=== PATIENT | male | born 1955 | race Caucasian/White ===

== ENCOUNTER → 2017-01-08 | Outpatient (CLI) | payer OTHER ==
[2017-01-09 12:13] LABS: Honeybee Venom IgE Class CLASS 0; Paper Wasp IgE <0.35 kU/L (<0.35); Paper Wasp IgE Class CLASS 0; White-Faced Hornet IgE <0.35 kU/L (<0.35); White-Faced Hornet IgE Class CLASS 0; Yellow Hornet IgE <0.35 kU/L (<0.35); Yellow Hornet IgE Class CLASS 0; Yellow Jacket IgE Class CLASS I
== END | disposition home or self-care (01) ==
LOC: LABWHC1 13:59
PROVIDERS: ATTEND Allergy & Immunology
DX: Z91.038 Other insect allergy status (principal)
CPT/HCPCS: 36415; 86003

== ENCOUNTER → 2018-09-27 | Outpatient (CLI) | payer OTHER ==
--- NOTE | 2018-09-28 08:41 | NM ---
Nuclear medicine hepatobiliary scan. HISTORY: Pain. DOSAGE: The patient received 2.1 micrograms of CCK and 4.7 mCi of Technetium 99m Choletec. FINDINGS: There is normal hepatic extraction. The gallbladder is seen by 30 minutes. There is bilia ry to bowel clearance by 10 minutes. Ejection fraction is 88%. IMPRESSION: 1. Normal filling of radiotracer within the gallbladder. 2. Ejection fraction of 88%. Correlate for hyperdynamic gallbladder.
== END | disposition home or self-care (01) ==
LOC: RADNMMAIN 14:43
PROVIDERS: ATTEND Physician Assistant Medical
DX: K82.9 Disease of gallbladder, unspecified (principal); R19.7 Diarrhea, unspecified; R11.2 Nausea with vomiting, unspecified
CPT/HCPCS: 78227; A9537; J2805

== ENCOUNTER → 2018-12-24 | Outpatient (CLI) | payer OTHER ==
--- NOTE | 2018-12-24 13:29 | CTL ---
EXAMINATION TYPE: CT Low Dose Lung DATE OF EXAM ORDERED: 12/24/2018 HISTORY: . Lung cancer screening CT DLP: 145.[address] CTDI: 3.8 mGy Automated exposure control for dose reduction was used. SCREENING VISIT: Initial COMPARISON: None TECHNIQUE: Low dose computed tomography scan was performed through the chest at 1 mm thick sections a nd reconstructed images in the coronal plane at [address] DIAGNOSTIC QUALITY: Satisfactory FINDINGS: LUNG NODULES: None. LUNGS: COPD: Severity: None Fibrosis: Severity: None Lymph nodes: None Other findings: None RIGHT PLEURAL SPACE: Effusion: None Calcification: None Thickening: None Pneumothorax: None LEFT PLEURAL SPACE: Effusion: None Calcification: None Thickening: None Pneumothorax: None HEART: Heart Size: Normal Coronary calcification: Mild Pericardial effusion: None OTHER FINDINGS: Upper abdomen: Some mild fatty infiltration of the liver is present. Bony thorax: Normal Supraclavicular region: Normal Other: Ascending thoracic aorta at the level the main pulmonary artery measures 3.8 cm. The main pul monary artery at the bifurcation measures 2.6 cm. IMPRESSION: 1. No suspicious lung changes. 2. Mild fatty infiltration of the liver FOLLOW UP CT CHEST RECOMMENDATION: Follow-up low dose CT chest per protocol CT LUNG RAD: 1
== END | disposition home or self-care (01) ==
LOC: RADCTMAIN 08:09
PROVIDERS: ATTEND Family Medicine
DX: Z13.83 Encounter for screening for respiratory disorder NEC (principal); Z87.891 Personal history of nicotine dependence

== ENCOUNTER → 2019-12-29 | Outpatient (CLI) | payer OTHER ==
--- NOTE | 2019-12-29 09:50 | CTL ---
EXAMINATION TYPE: CT Low Dose Lung DATE OF EXAM ORDERED: 12/29/2019 COMPARISON: 12/24/2018 HISTORY: . Low Dose CT Lung Screening CT DLP: 95.[address] CTDI: 2.3 mGy IV CONTRAST USED: None. SCREENING VISIT: First visit COMPARISON: None. TECHNIQUE: Low dose computed tomography scan was performed through the chest at 1 millimeter thick se ctions and reconstructed images in the coronal plane at [address] DIAGNOSTIC QUALITY: Satisfactory FINDINGS: LUNG NODULES: Not presentLeft lung: no nodules identified.Right lung: no nodules identified. LUNGS: COPD: Severity: None Fibrosis: Severity:None Lymph nodes: None Other findings: None RIGHT PLEURAL SPACE: Effusion: None Calcification: None Thickening: None Pneumothorax: None LEFT PLEURAL SPACE: Effusion: None Calcification: None Thickening: None Pneumothorax: None HEART: Heart Size: Mildly enlarged Coronary calcification: Mild Pericardial effusion: None OTHER FINDINGS: Upper abdomen: Mild hepatic steatosis suggested. Bony thorax: Degenerative changes Supraclavicular region: No significant abnormalityOther: No significant abnormalityI IMPRESSION: Benign FOLLOW UP CT CHEST RECOMMENDATION: Follow-up screening in one year CT LUNG RAD: LUNG RAD CATEGORY 1 negative
== END | disposition home or self-care (01) ==
LOC: RADCTMAIN 09:14
PROVIDERS: ATTEND Family Medicine
DX: Z12.2 Encounter for screening for malignant neoplasm of respiratory organs (principal); Z87.891 Personal history of nicotine dependence

== ENCOUNTER 2020-11-11 15:16 | Emergency (ER) | payer MEDICARE, OTHER ==
[2020-11-11 15:25] VITALS: BP 145/79; PULSE 94; RESP 20; TEMP 99.3
[2020-11-11] MEDS ORDERED: DIPH,PERTUS(ACELL)TETVAC-LF 0.5 ML VIAL IM ONE (15:50)
--- NOTE | 2020-11-11 15:50 | ED ---
General Adult HPI - General Chief complaint: Extremity Injury, Lower Stated complaint: L knee injury Time Seen by Provider: 11/11/20 15:35 Source: patient, RN notes reviewed, old records reviewed Mode of arrival: wheelchair Limitations: physical limitation - History of Present Illness Initial comments: 65-year-old male presents status post fall which occurred yesterday. Patient walking in water, fell into his whole striking his left knee. He had an abrasion or small puncture wound on the anterior knee. He states that he previously had a cyst or hard mass on the anterior knee that he believes drained. He does have pain with weightbearing or moving. - Related Data Previous Rx's Medication Instructions Recorded Clindamycin [Cleocin] 300 mg PO TID 7 Days cap 11/11/20 HYDROcodone/APAP 5-325MG [[place] 1 tab PO Q6HR PRN #12 tab 11/11/20 5-325] Ibuprofen [Motrin] 600 mg PO Q8HR PRN #24 tab 11/11/20 Allergies Allergy/AdvReac Type Severity Reaction Status Date / Time bee venom protein (honey bee) Allergy Anaphylaxis Verified 11/11/20 15:25 Review of Systems ROS Statement: Those systems with pertinent positive or pertinent negative responses have been documented in the HPI. ROS Other: All systems not noted in ROS Statement are negative. Past Medical History Past Medical History: Asthma, Diabetes Mellitus, Hypertension Additional Past Medical History / Comment(s): gout History of Any Multi-Drug Resistant Organisms: None Reported Past Surgical History: Ear Surgery Past Psychological History: No Psychological Hx Reported Smoking Status: Never smoker Past Alcohol Use History: Occasional Past Drug Use History: None Reported General Exam Limitations: physical limitation General appearance: alert, in no apparent distress Head exam: Present: atraumatic, normocephalic Eye exam: Present: normal appearance, PERRL ENT exam: Present: normal exam Neck exam: Present: normal inspection. Absent: tenderness, meningismus Respiratory exam: Present: normal lung sounds bilaterally. Absent: respiratory distress, wheezes Cardiovascular Exam: Present: regular rate, normal rhythm GI/Abdominal exam: Present: soft. Absent: distended, tenderness, guarding Extremities exam: Present: other (Left Knee: There is anterior abrasion just over the prepatellar bursa, the patella is nontender and nonerythematous. Ov erall anatomy of the knee is maintained. Distal pulses are intact.). Absent: joint swelling Course Vital Signs 11/11/20 15:22 Temperature 99.3 F Pulse Rate 94 Respiratory 20 Rate Blood Pressure 145/79 O2 Sat by Pulse 96 Oximetry Medical Decision Making - Medical Decision Making 65-year-old male with left knee pain, fall, abrasion. X-ray negative for fracture. Patient is placed in knee immobilizer, he has a walker which she is using. He is given close follow-up with orthopedics. Additionally he'll be given prophylactic antibiotics for skin coverage possible bursitis. Disposition Clinical Impression: Knee sprain, Prepatellar bursitis Disposition: HOME SELF-CARE Condition: Good Instructions (If sedation given, give patient instructions): Knee Sprain (ED), Knee Bursitis (ED) Prescriptions: Clindamycin [Cleocin] 300 mg PO TID 7 Days cap Ibuprofen [Motrin] 600 mg PO Q8HR PRN #24 tab PRN Reason: Pain HYDROcodone/APAP 5-325MG [[place] 5-325] 1 tab PO Q6HR PRN #12 tab PRN Reason: Pain Is patient prescribed a controlled substance at d/c from ED?: No Referrals: Evans Jiang III, MD [Primary Care Provider] - 1-2 days Lonnie Man DO [Doctor of Osteopathic Medicine] - 1-2 days Time of Disposition: 16:30
--- NOTE | 2020-11-11 16:14 | XR ---
EXAMINATION TYPE: XR knee complete LT DATE OF EXAM: 11/11/2020 COMPARISON: NONE HISTORY: Pain TECHNIQUE: 3 views FINDINGS: There is some spurring on the tibial tubercle. I see no fracture nor dislocation. Joint spa gregory are fairly normal. There is probably a very small knee joint effusion. IMPRESSION: Small knee joint effusion. No fracture. Normal joint spaces.
== END 2020-11-11 16:45 | disposition home or self-care (01) ==
LOC: EC 15:16
DX: S83.92XA Sprain of unspecified site of left knee, initial encounter (principal); M70.42 Prepatellar bursitis, left knee; E11.9 Type 2 diabetes mellitus without complications; I10 Essential (primary) hypertension; J45.909 Unspecified asthma, uncomplicated; Z23 Encounter for immunization; W18.30XA Fall on same level, unspecified, initial encounter; Y93.01 Activity, walking, marching and hiking
CPT/HCPCS: 73562; 90715; 90471; 99284; L1830 ×2

== ENCOUNTER → 2021-01-03 | Outpatient (CLI) | payer MEDICARE, OTHER ==
--- NOTE | 2021-01-03 08:04 | CTL ---
EXAMINATION TYPE: CT Low Dose Lung DATE OF EXAM ORDERED: 01/03/2021 HISTORY: Long-term tobacco use. Lung cancer screening CT DLP: 90.[address] CTDI: 2.3 mGy Automated exposure control for dose reduction was used. SCREENING VISIT: Second after baseline COMPARISON: Prior studies 2019 and 2018 TECHNIQUE: Low dose computed tomography scan was performed through the chest at 1 mm thick sections a nd reconstructed images in the coronal plane at [address] DIAGNOSTIC QUALITY: Satisfactory FINDINGS: LUNG NODULES: None. LUNGS: COPD: Severity: Mild Fibrosis: Severity: Minimal medial left basilar Lymph nodes: None Other findings: None RIGHT PLEURAL SPACE: Effusion: None Calcification: None Thickening: None Pneumothorax: None LEFT PLEURAL SPACE: Effusion: None Calcification: None Thickening: None Pneumothorax: None HEART: Heart Size: Normal Coronary calcification: Mild to moderate Pericardial effusion: Non- OTHER FINDINGS: Upper abdomen: None Bony thorax: [id number] multilevel spurring Supraclavicular region: None Other: Stable ascending aortic ectasia or aneurysm up to 3.9 cm. IMPRESSION: No new suspicious greater than [address] LUNG RAD AND CT CHEST RECOMMENDATION: Lung-Rad 1 Negative: Continue annual screening with LDCT in 12 months. S Modifier (other clinically significant findings): None
== END | disposition home or self-care (01) ==
LOC: RADCTMAIN 06:54
PROVIDERS: ATTEND Family Medicine
DX: Z12.2 Encounter for screening for malignant neoplasm of respiratory organs (principal); Z87.891 Personal history of nicotine dependence
CPT/HCPCS: 71271

== ENCOUNTER → 2021-09-11 | Outpatient (CLI) | payer MEDICARE ==
--- NOTE | 2021-09-11 17:14 | US ---
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 Diarrhea EXAM MEASUREMENTS: Liver Length: 17.4 cm Gallbladder Wall: 0.26 cm CBD: 0.3 cm Spleen: 10.0 cm Right Kidney: 11.2 x 6.2 x 5.1 cm Left Kidney: 12.9 x 6.2 x 4.6 cm Pancreas: Slightly limited due to gas Liver: Enlarged. Increased echogenicity, heterogeneous. Indistinct, hypoechoic area seen adjacent to GB measuring 3.0 x 1.4 x 1.0 cm suggestive of focal fatty sparing. Gallbladder: Minimal echoes within vs artifact Evidence for sonographic Mendoza's sign: No CBD: wnl Spleen: wnl Right Kidney: No hydronephrosis or masses seen Left Kidney: No hydronephrosis or masses seen Upper IVC: wnl Abd Aorta: Prox appears ectatic measuring 2.57 cm. IMPRESSION: 1. Hepatomegaly with fatty infiltration. 2. There may be some ectasia of the abdominal aorta. Aneurysmal dilatation is not identified..
== END | disposition home or self-care (01) ==
LOC: RADUSWWP 08:46
PROVIDERS: ATTEND Family Medicine
DX: K76.0 Fatty (change of) liver, not elsewhere classified (principal); R16.0 Hepatomegaly, not elsewhere classified; E80.7 Disorder of bilirubin metabolism, unspecified
CPT/HCPCS: 76700

== ENCOUNTER → 2022-01-07 | Outpatient (CLI) | payer MEDICARE ==
--- NOTE | 2022-01-08 09:47 | CTL ---
EXAMINATION TYPE: CT Low Dose Lung DATE OF EXAM ORDERED: 01/07/2022 HISTORY: Long-term tobacco use. Lung cancer screening CT DLP: 128.[address] CTDI: 3.30 mGy Automated exposure control for dose reduction was used. SCREENING VISIT: Third exam after baseline COMPARISON: Prior study January 03, 2021 and older reports. PACS downtime. TECHNIQUE: Low dose computed tomography scan was performed through the chest at 1 mm thick sections a nd reconstructed images in multiple planes at 1 mm and [address] DIAGNOSTIC QUALITY: Satisfactory FINDINGS: LUNG NODULES: None. LUNGS: COPD: Severity: Mild Fibrosis: Severity: Minimal medial left basilar. Mild peripheral reticulation. Lymph nodes: None Other findings: None RIGHT PLEURAL SPACE: Effusion: None Calcification: None Thickening: None Pneumothorax: None LEFT PLEURAL SPACE: Effusion: None Calcification: None Thickening: None Pneumothorax: None HEART: Heart Size: Normal Coronary calcification: Mild to moderate redemonstrated Pericardial effusion: None OTHER FINDINGS: Upper abdomen: None Bony thorax: [id number] multilevel spurring Supraclavicular region: None Other: Stable ascending aortic ectasia or aneurysm up to 3.7 cm current study IMPRESSION: No new suspicious greater than [address] LUNG RAD AND CT CHEST RECOMMENDATION: Lung-Rad 1 Negative: Continue annual screening with LDCT in 12 months. S Modifier (other clinically significant findings): None
== END | disposition home or self-care (01) ==
LOC: RADCTMAIN 14:50
PROVIDERS: ATTEND Family Medicine
DX: Z12.2 Encounter for screening for malignant neoplasm of respiratory organs (principal); Z87.891 Personal history of nicotine dependence
CPT/HCPCS: 71271

== ENCOUNTER 2022-12-31 09:16 | Day surgery (SDC) | payer MEDICARE ==
[2022-12-25 16:26] VITALS: BMI 29.8
[~2022-12-31 09:16] MED LIST: ALPRAZolam 0.25 MG TAB PO PRN; ALPRAZolam 0.5 MG TAB PO PRN; ASPIRIN 325 MG TAB PO STA; ATORVASTATIN 80 MG TAB PO STA; HEPARIN SODIUM,PORCINE (1 ML) 2,500 UNIT in SODIUM CHLORIDE 0.9% 250 ML IRRIGATION PRN; HEPARIN SODIUM,PORCINE 10,000 UNIT in SODIUM CHLORIDE 0.9% 1,000 ML IRRIGATION PRN; NITROGLYCERIN SL TABS 0.4 MG TAB SUBLINGUAL PRN; SODIUM CHLORIDE 0.9% 1,000 ML in EMPTY BAG 1 BAG IV SCH
[2022-12-31 09:49] VITALS: RESP 18; TEMP 98.2
[2022-12-31 09:51] LABS: Glucose,Whole Blood 105 mg/dL (70-110)
[2022-12-31] MEDS ORDERED: HEPARIN SODIUM 1,000 UN/ML (10ML VL) ONE (11:10)
[2022-12-31] MEDS ORDERED: fentaNYL (PF) 50 MCG/ML 2 ML AMP ONE (11:10)
[2022-12-31] MEDS ORDERED: MIDAZOLAM 2 MG/2 ML VIAL IVP ONE (11:14)
[2022-12-31] MEDS ORDERED: fentaNYL (PF) 50 MCG/ML 2 ML AMP IVP ONE (11:14)
[2022-12-31] MEDS ORDERED: LIDOCAINE 1% INJ 10MG/ML (5 ML VIAL-PF) SQ ONE (11:25)
[2022-12-31] MEDS ORDERED: VERAPAMIL SYRINGE (5 MG/10 ML) INTRAARTER ONE (11:26)
[2022-12-31] MEDS ORDERED: HEPARIN SODIUM 1,000 UN/ML (10ML VL) IVP ONE (11:28)
[2022-12-31] MEDS ORDERED: IOPAMIDOL-370 100ML BTL INJ ONE (11:47)
--- NOTE | 2022-12-31 11:58 | P.CARDCATH ---
Description of Procedure: PROCEDURES PERFORMED: Left heart catheterization, bilateral coronary angiography, iFR RCA, ultrasound guided arterial access INDICATION: Abnormal stress test, dyspnea on exertion concerning for unstable angina CONSENT:I have discussed the risks, benefits and alternative therapies for the above-mentioned procedure and for both sedation/analgesia as well as necessary blood product administration, if indicated, as they pertain to this patient. The patient has indicated understanding and acceptance of the risks and procedures discussed. PROCEDURE: After the risks, benefits and alternatives of the above mentioned procedure explained in detail with the patient, informed consent was obtained. Patient was taken to the catheterization lab and prepped and draped in usual fashion. Ultrasound guidance was used to assess for arterial access. 1% lidocaine was used to anesthetize the right radial artery. A 6-Ugandan sheath was placed in the right radial artery using modified Seldinger technique and ultrasound guidance. Left coronary angiography was performed with a 5-Ugandan JL 3.5 catheter and right coronary angiography was performed with a 6-Ugandan AR2 catheter in various views. A 5-Ugandan FR5 catheter was inserted into the left ventricle and pressure measurements were obtained. Given the abnormality was in the RCA distribution and more of a mild to moderate RCA lesion, decision was made to perform iFR. Heparin was given. A 0.014 PressureWire was advanced through the AR2 catheter and normalize. It was then advanced 1 cm distal to the RCA lesion and iFR was performed and was normal at 0.93. The right radial sheath was removed and a TR band was placed with hemostasis achieved. The patient tolerated the procedure well. Patient was transported back to the post catheterization holding area in stable condition. Conscious Sedation: Patient was monitored under the direct supervision of myself for conscious sedation using Versed and fentanyl for a total duration of 20 minutes HEMODYNAMICS: Aorta: 135/75 LV: 133/5, LVEDP 22 SELECTIVE CORONARY ARTERIOGRAPHY: LEFT MAIN: The left main is a large caliber vessel which bifurcates into the LAD and circumflex. There is no significant stenosis. LEFT ANTERIOR DESCENDING CORONARY ARTERY: LAD is a large caliber vessel which wraps around to the apex. There is a mild 20-30% mid LAD stenosis and otherwise normal. LEFT CIRCUMFLEX CORONARY ARTERY: Left circumflex is a moderate caliber vessel without significant stenosis. RIGHT CORONARY ARTERY: The right coronary artery is a large caliber vessel which gives off a PDA and PLV branch and is the dominant vessel. There is a mid RCA 40-50% stenosis and otherwise normal. FINAL IMPRESSION: 1. CAD as described above including 2030% mid LAD and mid RCA 40-50% stenosis 2. Mildly increased left sided filling pressures 3. Normal iFR RCA PLAN: 1. Aggressive risk factor modification per most recent ACC/AHA guidelines. 2. Follow-up in the office in 1-2 weeks. 3. Consider diuretics if having significant dyspnea.
[2022-12-31 15:16] VITALS: PULSE 50
[2022-12-31 15:18] VITALS: BP 112/59
== END 2022-12-31 15:55 | disposition home or self-care (01) ==
LOC: CATHCVL 09:16
PROVIDERS: ATTEND Internal Medicine
DX: I25.10 Atherosclerotic heart disease of native coronary artery without angina pectoris (principal); E11.9 Type 2 diabetes mellitus without complications; I10 Essential (primary) hypertension; E78.5 Hyperlipidemia, unspecified; Z82.49 Family history of ischemic heart disease and other diseases of the circulatory system; F17.210 Nicotine dependence, cigarettes, uncomplicated; Z79.84 Long term (current) use of oral hypoglycemic drugs; Z79.02 Long term (current) use of antithrombotics/antiplatelets; Z79.85 Long-term (current) use of injectable non-insulin antidiabetic drugs; Z79.51 Long term (current) use of inhaled steroids; Z79.899 Other long term (current) drug therapy
CPT/HCPCS: 93458; 93799; C1769 ×2; C1894; J2250; J2001; J3010; J1644; Q9967; 76937

== ENCOUNTER → 2023-02-16 | Outpatient (CLI) | payer MEDICARE ==
--- NOTE | 2023-02-16 16:06 | US ---
EXAMINATION TYPE: US kidneys/renal and bladder DATE OF EXAM: 02/16/2023 COMPARISON: Abd US 2021 CLINICAL INDICATION: Male, 67 years old with history of N20.2 CALCULUS OF KIDNEY WITH CALCULUS OF URE TER; EXAM MEASUREMENTS: Right Kidney: 10.7 x 6.1 x 4.8 cm Left Kidney: 13.5 x 5.5 x 5.6 cm Right Kidney: wnl Left Kidney: Double collecting system Bladder: Anechoic; patient did not fill fully Bilateral Jets seen: No There is no evidence for hydronephrosis at this point in time. No nephrolithiasis is seen. No pam s are identified. The urinary bladder is anechoic. IMPRESSION: 1. No evidence for obstructive uropathy. 2. No evidence for renal calculus. 3. Duplex left collecting system.
== END | disposition home or self-care (01) ==
LOC: RADUSWWP 15:26
PROVIDERS: ATTEND Family Medicine
DX: N20.2 Calculus of kidney with calculus of ureter (principal)
CPT/HCPCS: 76770

== ENCOUNTER → 2024-01-25 | Outpatient (CLI) | payer MEDICARE ==
--- NOTE | 2024-01-25 15:12 | CTL ---
EXAMINATION TYPE: CT Low Dose Lung DATE OF EXAM ORDERED: 01/25/2024 History: Lung cancer screening CT DLP: 129.[address] CTDI: 3.4 mGy Automated exposure control for dose reduction was used. CONCLUSION: 01/21/2023 TECHNIQUE: Low dose computed tomography scan was performed through the chest at 1 mm thick sections and reconstructed images in multiple planes at 1 mm and [address] DIAGNOSTIC QUALITY: Satisfactory FINDINGS: EXAMINATION TYPE: CT Low Dose Lung DATE OF EXAM ORDERED: 01/25/2024 HISTORY: Lung cancer screening CT DLP: 129.[address] CTDI: 3.4 mGy Automated exposure control for dose reduction was used. Comparison: None TECHNIQUE: Low dose computed tomography scan was performed through the chest at 1 mm thick sections a nd reconstructed images in multiple planes at 1 mm and [address] DIAGNOSTIC QUALITY: Satisfactory FINDINGS: There is no suspicious lung mass or nodule The lungs are clear and there is no abnormal airspace consolidation or interstitial density. There is no mediastinal, hilar or axillary adenopathy. There is no pleural effusion, pleural thickening or pneumothorax. No focal osseous lesions are seen. Limited scans the upper abdomen reveals no gross abnormality IMPRESSION: 1. Lung rads Category 1 negative. Continue routine screening at yearly intervals. 2. No acute cardiopulmonary disease. [facility], , 01/25/2024 3:10 PM
== END | disposition home or self-care (01) ==
LOC: RADCTMAIN 14:13
PROVIDERS: ATTEND Family Medicine
DX: Z87.891 Personal history of nicotine dependence
CPT/HCPCS: 71271

== ENCOUNTER → 2024-02-22 | Outpatient (CLI) | payer MEDICARE ==
--- NOTE | 2024-02-22 14:38 | CT ---
EXAMINATION TYPE: CT tmj maxillofacial wo con DATE OF EXAM: 02/22/2024 COMPARISON: None CLINICAL INDICATION: Male, 68 years old with history of H93.19 TINNITUS, UNSPECIFIED EAR; PHH, [place] us with hearing loss x [address] DLP: 622.3 mGycm Automated exposure control for dose reduction was used. FINDINGS: Mastoid air cells and middle ear cavities are well aerated. The internal, external canals are normal and symmetric. The inner ear structures are normal and symmetric. The ossicular chains are intact. There is no definite abnormality of the tympanic membrane. The osseous structures are intact. No osseous destruction or erosion. There is no aberrant internal carotid artery or sigmoid plate dehiscence. There is no high riding jug ular bulb IMPRESSION: NO SIGNIFICANT ABNORMALITY SEEN. [facility], , 02/22/2024 2:36 PM
== END | disposition home or self-care (01) ==
LOC: RADCTMAIN 13:59
PROVIDERS: ATTEND Otolaryngology
CPT/HCPCS: 70486

== ENCOUNTER → 2024-03-09 | Outpatient (CLI) | payer OTHER ==
--- NOTE | 2024-03-10 13:57 | CT ---
EXAMINATION TYPE: CT iac wo con DATE OF EXAM: 03/09/2024 3:44 PM COMPARISON: Previous CT study dated 02/13/2034. INDICATION: Patient age: Male; 68 years old; Reason for study: H93.19 TINNITUS, UNSPECIFIED EAR; PHH. TECHNIQUE: Multiple thin axial images were obtained through the temporal bones and internal auditory canals. Additional coronal reformatted images were obtained. STENVER and POSCHL views were created o n a separate work station. CT DLP: 202 mGycm, Automated exposure control for dose reduction was used. FINDINGS: Right Temporal Bone: The external auditory canal is unremarkable. There are postsurgical changes suggesting previous right sided partial mastoidectomy. There is an ind eterminate region of soft tissue density along the posterior margin of the hypotympanum (coronal imag e 122, axial image 29). There is a misshapen appearance to the ossicles and evidence of chronically o pacified mastoid air cells. Cochlea and vestibular aqueduct unremarkable. Semicircular canals unremar kable. Tympanic membrane is present. Left Temporal Bone: External Ear: The external auditory canal is unremarkable, The tympanic membrane is present and unrem arkable. Middle Ear: The ossicles demonstrate a normal appearance. Prussak's space is clear and the scutum i s intact. There is no evidence of osseous erosion and the tegmen tympani is intact. Inner Ear: Cochlea, vestibule and semi circular canals are unremarkable. No evidence of carotid dani l dehiscence. Two and a half turns of the cochlea are identified. The vestibular aqueduct is not enl arged. Mastoid Air Cells: The mastoid air cells are chronically opacified. The tegmen mastoideum is intact. The aditus ad antrum is clear. Internal Auditory Canal: The internal auditory canal is unremarkable. Other: Mild bilateral maxillary sinus mucosal thickening, right greater than left. IMPRESSION: 1. Findings suggesting postsurgical changes of previous partial right-sided mastoidectomy with an in determinate region of soft tissue density along the posterior margin of the hypotympanum, which is no nspecific but could reflect either granulation tissue or sequelae of chronic inflammation with choles teatoma considered less likely but not entirely excluded. Consider direct visualization for further e valuation as clinically indicated. 2. Complete opacification of the right mastoid air cells and partial chronic opacification of the le ft mastoid air cells. [facility], , 03/10/2024 1:55 PM
== END | disposition home or self-care (01) ==
LOC: RADCTMAIN 15:17
PROVIDERS: ATTEND Otolaryngology
DX: H74.8X3 Other specified disorders of middle ear and mastoid, bilateral (principal); H93.19 Tinnitus, unspecified ear
CPT/HCPCS: 70480

== ENCOUNTER → 2024-06-17 | Outpatient (CLI) | payer MEDICARE ==
--- NOTE | 2024-06-17 13:24 | CT ---
EXAMINATION TYPE: CT iac wo con CT DLP: 133 mGycm, Automated exposure control for dose reduction was used. DATE OF EXAM: 06/17/2024 10:50 AM INDICATION: Patient age:Male; 69 years old; Reason for study: H93.19 TINNITUS, UNSPECIFIED EAR; PHH. COMPARISON: CT IAC 03/09/2024, CT TMJ/maxillofacial 02/22/2024. TECHNIQUE: Multiple thin axial images were obtained through the temporal bones and internal auditory canals. Additional coronal reformatted images were obtained. No IV contrast was utilized. FINDINGS: Right Temporal Bone: The external auditory canal is unremarkable. Similar postsurgical changes suggesting previous right-sided partial mastoidectomy. There is again in determinate region of soft tissue density along the posterior margin of the hypotympanum. There is si milar measurements shape and appearance to the ossicles and evidence of chronically opacified mastoid air cells. The cochlea and vestibular aqueducts appear unremarkable. The semicircular canals are unr emarkable. The tympanic membrane appears present. Left Temporal Bone: External Ear: The external auditory canal is unremarkable, The tympanic membrane is present and unrem arkable. Middle Ear: The ossicles demonstrate a normal appearance. Prussak's space is clear and the scutum i s intact. There is no evidence of osseous erosion and the tegmen tympani is intact. Inner Ear: Cochlea, vestibule and semi circular canals are unremarkable. No evidence of carotid dani l dehiscence. Two and a half turns of the cochlea are identified. The vestibular aqueduct is not enl arged. Mastoid Air Cells: The mastoid air cells are chronically opacified. The tegmen mastoideum is intact. The aditus ad antrum is clear. Internal Auditory Canal: The internal auditory canal is unremarkable. Mild mucosal thickening in the inferior bilateral maxillary sinuses right greater than left. Remainin g paranasal sinuses are clear. Hypoplasia of the bilateral frontal sinuses. Remote right lamina papyr acea fracture. Calcification of the intracranial vasculature. Nasal septal deviation to the left with spurring. IMPRESSION: 1. Overall unchanged examination with findings suggesting post surgical changes from previous partial right-sided mastoidectomy with indeterminate region of soft tissue density along the posterior jose m n of the hypotympanum. This again is nonspecific and could reflect granulation tissue/sequela of bookie vishal inflammation with cholesteatoma is not excluded. Consider direct visualization as clinically jannette cated. 2. Similar complete opacification of the remaining right mastoid air cells and partial chronic opacif ication of the left mastoid air cells. [facility], , 06/17/2024 1:21 PM
== END | disposition home or self-care (01) ==
LOC: RADCTMAIN 10:29
PROVIDERS: ATTEND Otolaryngology
DX: H93.19 Tinnitus, unspecified ear (principal); J34.2 Deviated nasal septum
CPT/HCPCS: 70480